=== PATIENT | male | born 1990 | race Caucasian/White ===

== ENCOUNTER 2016-07-16 18:57 | Emergency (ER) ==
[2016-07-16] MEDS ORDERED: DILAUDID IM ONE (19:11)
[2016-07-16] MEDS ORDERED: ZOFRAN ODT PO ONE (19:11)
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
[2016-07-16 20:25] VITALS: BP 127/75
--- NOTE | 2016-07-17 07:48 | Diag Imaging Result Document ---
PROCEDURE NAME: ANKLE COMPLETE LEFT - 07/16/2016 LEFT ANKLE, FOUR VIEWS: FINDINGS: No fracture. No dislocation. IMPRESSION: No acute bony injury.
--- NOTE | 2016-07-17 07:59 | Diag Imaging Result Document ---
PROCEDURE NAME: KNEE 3 VIEWS LEFT - 07/16/2016 LEFT KNEE, THREE VIEWS: FINDINGS: There is a tiny lucent area along the medial femoral condyle. This does not have the appearance of a typical fracture. No other fracture or dislocation. No evidence of an effusion. IMPRESSION: No acute bony injury.
--- NOTE | 2016-07-17 08:14 | Diag Imaging Result Document ---
PROCEDURE NAME: LOWER LEG-LEFT - 07/16/2016 LEFT LOWER LEG, TWO VIEWS: FINDINGS: There is no evidence of fracture or dislocation. No other definite bony abnormalities are present. IMPRESSION: No acute disease.
== END 2016-07-16 20:28 | disposition home or self-care (01) ==
LOC: ED 18:57
DX: S93.402A Sprain of unspecified ligament of left ankle, initial encounter (principal); S87.02XA Crushing injury of left knee, initial encounter; S87.82XA Crushing injury of left lower leg, initial encounter; M25.562 Pain in left knee; M79.662 Pain in left lower leg; M25.572 Pain in left ankle and joints of left foot; M25.462 Effusion, left knee; M25.472 Effusion, left ankle; M79.89 Other specified soft tissue disorders; F17.210 Nicotine dependence, cigarettes, uncomplicated; Z71.6 Tobacco abuse counseling; V09.09XA Pedestrian injured in nontraffic accident involving other motor vehicles, initial encounter
CPT/HCPCS: 96372; J1170

== ENCOUNTER 2016-09-20 19:08 | Emergency (ER) ==
[2016-09-20 19:53] VITALS: BP 130/88
[2016-09-20] MEDS ORDERED: ZOFRAN ODT PO ONE (20:12)
[2016-09-20] MEDS ORDERED: BICILLIN L-A IM ONE (20:13)
--- NOTE | 2016-09-20 20:20 | PROVIDER DOCUMENTATION ---
HPI-Abdominal Pain/GI Problem - General Chief Complaint: Sore Throat Stated Complaint: VOMITING, MAE, COLD SX Time Seen by Provider: 09/20/16 20:01 Source: patient Allergies/Adverse Reactions: Patient Allergies Allergy/AdvReac Type Severity Reaction Status Date / Time No Known Allergies Allergy Verified 08/20/16 11:08 Home Medications: Home Medication List Medication Instructions Recorded Confirmed Last Taken Type Methocarbamol [Robaxin-750] 750 mg PO BID PRN #60 tablet 08/09/16 08/20/1608/20 08:15 Rx Naproxen 500 mg PO BID PRN PRN #60 tablet 08/09/16 08/20/16 08/20/16 08:15 Rx Ondansetron [Zofran] 4 mg PO Q6H PRN PRN #20 tablet 09/20/16 Unknown Rx Promethazine [Phenergan] 25 mg PO Q6H PRN PRN #20 tablet 09/20/16 Unknown Rx - History of Present Illness-ABD Nature of Presenting Problems: 25 y/o M presents to the ED for vomiting, sore throat, MAE x 1 day. Pt states he was having a sore throat last night, and not feeling good, so he went to his PCP today and was diagnosed with strep. States was given amoxicillin as an Rx, but cannot hold it down. States vomiting with every oral intake. Denies any abd. pain, diarrhea. States mild frontal MAE. Review of Systems - Adult - REVIEW OF SYSTEMS - ADULT Constitutional: reports: no symptoms reported. denies: chills, fever Eyes: reports: no symptoms reported. denies: blurred vision, double vision Ears, Nose, Mouth & Throat: reports: see HPI, throat pain. denies: ear pain, nose pain Cardiovascular: reports: no symptoms reported. denies: chest pain, palpitations Respiratory: reports: no symptoms reported. denies: cough, shortness of breath Gastrointestinal: reports: see HPI, nausea, vomiting. denies: abdominal pain, constipation, diarrhea Genitourinary: reports: no symptoms reported. denies: dysuria, frequency Musculoskeletal: reports: no symptoms reported. denies: joint pain, joint swelling Integumentary: reports: no symptoms reported. denies: nail changes, rash Neurological: reports: no symptoms reported, headache/migraines. denies: numbness, paresthesia Psychiatric: reports: no symptoms reported Endocrine: reports: no symptoms reported. denies: cold intolerance, heat intolerance Hematologic/Lymphatic: reports: no symptoms reported. denies: easy bruising, prolonged bleeding Allergic/Immunologic: reports: no symptoms reported All Other Systems: Reviewed and Negative Past History - Adult - PAST MEDICAL HISTORY-ADULT Review of Records: reports: Nursing Assessment Review, Medications Reviewed Major Childhood Illnesses: reports: denies history Cardiovascular: reports: denies history Respiratory: reports: denies history Gastrointestinal: reports: GERD, ulcer, other Obstetrical/Gynecological: reports: denies history Genitourinary: reports: other Musculoskeletal: reports: denies history Neurological: reports: denies history Psychiatric: reports: other Endocrine/Immune: reports: denies history Other Conditions: reports: denies history - PRIOR SURGERIES/PROCEDURES Surgical/Procedure History: reports: other - IMMUNIZATION STATUS Childhood Immunizations: UTD Flu Vaccine: See Nurse Assessment - FAMILY HISTORY Family History: reviewed, not pertinent - SOCIAL HISTORY Smoking: denies Physical Exam-General - PHYSICAL EXAM-ADULT Initial Vital Signs Reviewed: Yes - CONSTITUTIONAL General Appearance: alert, mild distress - EYES Eyes: pink conjunctivae - HEAD, EARS, NOSE, MOUTH & THROAT HENMT: normocephalic/atraumatic, moist mucous membranes, pharyngeal erythema. negative: tonsillar exudate - NECK Neck: supple, normal inspection, lymphadenopathy (mild, ant. cervical) - RESPIRATORY Respiratory: lungs clear, normal breath sounds. negative: crackles, rales, rhonchi, stridor, wheezing - CARDIOVASCULAR Cardiovascular: tachycardia. negative: regular rate, rhythm, bradycardia - GASTROINTESTINAL (ABDOMEN) Abdominal Exam: normal bowel sounds, soft, tenderness (L abd. pain- mild). negative: distended, guarding, rigid, McBurney's point tenderness, North's sign - MUSCULOSKELETAL Back Exam: no CVA tenderness Extremity: normal gait - SKIN Integumentary: normal color, normal turgor, warm/dry - NEUROLOGIC Neurologic: negative: aphasia - PSYCHIATRIC Psych/Mental Status: normal mood/affect, normal thought content, normal thought process, oriented x 3 Progress - XRAY 1 XRAY Study: Chest, Abdomen XRAY Interpretation: No free air or fluid levels Departure - Departure Time of Disposition Order: 20:46 DIAGNOSIS: Vomiting Qualifiers: Vomiting type: unspecified Vomiting Intractability: non-intractable Nausea presence: unspecified Qualified Code(s): R11.10 - Vomiting, unspecified Pharyngitis Qualifiers: Pharyngitis/tonsillitis etiology: unspecified etiology Qualified Code(s): J02.9 - Acute pharyngitis, unspecified DIAGNOSIS: (Ruled Out): Influenza Disposition: HOME 01 Certified Medical Emergency: Emergent Condition: Stable Additional Instructions: Take medications as directed. Drink plenty of fluids. Tylenol and/or motrin for pain/fever. Return if symptoms get worse. ED Follow Up Instructions: You have been treated by a care provider in the Emergency Department. These instructions are being provided to you so you can have an understanding of how to care for yourself upon discharge. Upon discharge from the Emergency Department, you are responsible for making arrangements for follow-up care by a physician of your choice. Take all prescribed medications as directed. Return to the Emergency Department immediately for any new or worsening symptoms. You may call the Physician Referral phone number at [phone] to obtain a list of Physicians who are taking new patients. Prescriptions: Promethazine [Phenergan] 25 mg PO Q6H PRN PRN #20 tablet PRN Reason: Nausea Ondansetron [Zofran] 4 mg PO Q6H PRN PRN #20 tablet PRN Reason: Nausea Referrals: None,PCP [Primary Care Provider] - Attestation - Physician/ AILEEN Attestation Patient care was provided by Advanced Practice Provider:: Yes Advanced Practice Provider:: Mora Pickett Advanced Practice Provider documentation review:: The Mid-level provider documentation, treatment plan and medical decision making was reviewed by the physician who agrees with all treatment and medical decision making by the MLP.
--- NOTE | 2016-09-21 08:20 | Diag Imaging Result Document ---
PROCEDURE NAME: FLAT/UPRIGHT ABD/1 VIEW CHEST - 09/20/2016 PLAIN RADIOGRAPHS OF THE CHEST AND ABDOMEN, 3 VIEWS: COMPARISON: 08/09/2016. FINDINGS: There are unremarkable colonic gas and stool patterns. There is no evidence of bowel obstruction. There is no discrete organomegaly. There is no evidence of large volume free abdominal gas. The lungs are grossly clear. The cardiomediastinal silhouette and upper airway are grossly unremarkable. IMPRESSION: No evidence of acute abdominal or chest pathology identified.
== END 2016-09-20 21:40 | disposition home or self-care (01) ==
LOC: ED 19:08
DX: J02.9 Acute pharyngitis, unspecified (principal); R11.2 Nausea with vomiting, unspecified; R51 Headache; K21.9 Gastro-esophageal reflux disease without esophagitis; R59.0 Localized enlarged lymph nodes; R10.9 Unspecified abdominal pain
CPT/HCPCS: 74022; 87804; 96372; J0561

== ENCOUNTER 2016-09-22 14:17 | Emergency (ER) ==
[2016-09-22] MEDS ORDERED: TORADOL IV ONE (18:19)
[2016-09-22] MEDS ORDERED: NS 1,000 ML IV ONE (18:19)
[2016-09-22 18:39] LABS: MANUAL DIFF NEEDED? NO
[2016-09-22 18:43] LABS: BASO% 0.2 % (0.0-0.8); HEMATOCRIT 46.2 % (42.0-52.0); HEMOGLOBIN 16.1 g/dL (14.0-18.0); IMM GRAN# 0.03 X1000 (0.0-0.04); IMM GRAN% 0.3 % (0.0-0.5); LYMPH# 0.54 X1000 (1.2-3.4); LYMPH% 6.2 % (20.5-51.1); MCH 30.7 PG (27-31); MCHC 34.8 g/dL (33-37); MONO# 1.18 X1000 (0.11-0.59); MONO% 13.5 % (1.7-9.3); MPV 8.1 FL (7.4-10.4); NEUT% 79.8 % (42.2-75.2); PLT 175 X1000 (130-400); RBC 5.25 XMIL (4.7-6.1)
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
[2016-09-22 19:05] LABS: AGAP 12; ALKALINE PHOSPHATASE 88 U/L (32-122); AMYLASE 32 U/L (20-200); BUN 13 mg/dL (8-22); CALCIUM 8.6 mg/dL (8.8-10.2); CHLORIDE 96 mmol/L (98-107); COSMO 268; GOT 19 U/L (10-34); GPT 32 U/L (10-44); LIPASE 12 U/L (13-60); POTASSIUM 3.4 mmol/L (3.5-5.1); SODIUM 134 mmol/L (136-145); TCO2 26 mmol/L (25-35); TOTAL PROTEIN 7.2 g/dL (6.3-8.3)
[2016-09-22 19:09] LABS: URINE CULTURE PL NEEDED? NO; URINE SOURCE CLEAN CATCH
[2016-09-22 19:28] LABS: BILIRUBIN URINE NEGATIVE (NEGATIVE); BLOOD URINE 3+ (NEGATIVE); CLARITY CLEAR (CLEAR); COLOR YELLOW; GLUCOSE URINE NEGATIVE (NEGATIVE); LEUKOCYTES URINE NEGATIVE (NEGATIVE); NITRITE URINE NEGATIVE (NEGATIVE); PROTEIN URINE 1+(30 mg/dL) mg/dL (NEGATIVE); SP GRAVITY URINE 1.015
[2016-09-22 19:43] LABS: URINE EPITHELIAL CELLS <10 /HPF (<10); URINE WBC <10 /HPF (<10); UROBILINOGEN URINE 3+(8 mg/dL)
--- NOTE | 2016-09-22 21:34 | Diag Imaging Result Document ---
PROCEDURE NAME: ABDOMEN/PELVIS W/O CONTRAST - 09/22/2016 CT ABDOMEN AND PELVIS WITHOUT CONTRAST: COMPARISON: 05/08/2013. FINDINGS: There are no renal or ureteral stones, and there is no evidence of acute obstructive uropathy. The urinary bladder is grossly unremarkable. The gallbladder is unremarkable. The appendix appears normal. The remainder of the solid viscera of the abdomen and pelvis and the remainder of the GI tract is essentially unremarkable. No focal inflammatory changes, free abdominal gas, or free fluid is identified. IMPRESSION: No evidence of acute pathology.
[2016-09-22 21:49] VITALS: BP 130/080
== END 2016-09-22 21:48 | disposition home or self-care (01) ==
LOC: P.ED 14:17
DX: K52.9 Noninfective gastroenteritis and colitis, unspecified (principal); R11.2 Nausea with vomiting, unspecified; R19.7 Diarrhea, unspecified; J02.9 Acute pharyngitis, unspecified; M54.9 Dorsalgia, unspecified; R51 Headache; F17.210 Nicotine dependence, cigarettes, uncomplicated; F17.220 Nicotine dependence, chewing tobacco, uncomplicated; Z71.6 Tobacco abuse counseling
CPT/HCPCS: 74176; 80053; 81001; 82150; 83690; 85025; 96361; 96374; J1885; J7030